=== PATIENT | male | born 1995 ===

== ENCOUNTER 2018-03-12 04:28 | Emergency (ER) | payer OTHER ==
[2018-03-12 06:07] VITALS: BP 111/73
--- NOTE | 2018-03-12 07:34 | Emergency Department Report ---
Abscess Boil HPI - HPI Chief Complaint: Skin/Abscess/Foreign Body Stated Complaint: ABSCESS [facility] Time Seen by Provider: 03/12/18 07:14 Duration: 3 Days Location: Other ([facility]) Severity: Mild History: Yes Pain, No Fever, No Purulent Drainage, No Numbness, No Foreign Body , No Previous History, No Insect Bite Home Medications: Previous Rx's Medication Instructions Recorded Last Taken Type cephALEXin [Keflex] 500 mg PO Q12HR #20 cap 03/12/18 Unknown Rx Allergies/Adverse Reactions: Allergies Allergy/AdvReac Type Severity Reaction Status Date / Time No Known Allergies Allergy Unverified 03/12/18 06:06 ED Review of Systems ROS: Stated complaint: ABSCESS [facility] Other details as noted in HPI Comment: All other systems reviewed and negative Constitutional: no symptoms reported. denies: fever Eyes: denies: eye pain ENT: denies: ear pain, throat pain Respiratory: no symptoms reported Cardiovascular: denies: chest pain Endocrine: denies: excessive sweating Gastrointestinal: denies: abdominal pain Genitourinary: denies: urgency Musculoskeletal: denies: back pain Skin: rash, lesions Neurological: denies: headache Psychiatric: denies: anxiety, depression Hematological/Lymphatic: denies: easy bleeding ED Past Medical Hx - Past Medical History Previous Medical History?: No - Surgical History Past Surgical History?: No - Social History Smoking Status: Current Every Day Smoker Substance Use Type: Alcohol, Marijuana - Medications Home Medications: Home Medications Medication Instructions Recorded Confirmed Last Taken Type cephALEXin [Keflex] 500 mg PO Q12HR #20 cap 03/12/18 Unknown Rx ED Abscess Boil Physical Exam - Exam General: Vital signs noted. No distress. Alert and acting appropriately. Exam: Yes Tenderness, No Fluctuance, No Surrounding Cellulites/Erythema, No Lymphangitis, No Crepitation, No Heart Murmur, No Normal Neurologic Exam, No Normal Circulation Exam: [facility] W FOLLICULITIS AND BLOCKED PORES. THERE IS NO LOCALIZED ABSCESS AND DOES NOT APPEAR TO BE HIDRADENITIS. CAUTIONED PT THAT THIS COULD TURN TO HIDRA. IF HE DOES NOT CARE FOR THE AREA WITH EXFOLIATION ETC. ED Course Vital Signs 03/12/18 05:12 Temperature 98.5 F Pulse Rate 57 L Respiratory 14 Rate Blood Pressure 111/73 O2 Sat by Pulse 100 Oximetry - Reevaluation(s) Reevaluation #1: 03/12/18 08:45 NO I/D REQUIRED DIFFUSE FOLLICULITIS OF [facility] SKIN CARE INSTRUCTIONS MEDICATED Critical care attestation.: If time is entered above; I have spent that time in minutes in the direct care of this critically ill patient, excluding procedure time. ED Medical Decision Making - Differential Diagnosis FOLLICULITIS V ABSCESS V HIDRADENITIS ED Disposition Clinical Impression: Folliculitis Disposition: DC- TO HOME OR SELFCARE Is pt being admited?: No Does the pt Need Aspirin: No Condition: Stable Instructions: Folliculitis (ED) Additional Instructions: CLIP UNDERARM HAIR EXFOLIATE WELL USE SPRAY DEODORANT KEEP AREA CLEAN AND DRY WEAR LOSE COTTON CLOTHING EPSOM SALTS IN THE BATH TUB FOR 20 M EACH DAY WILL HELP MED ORDERED TODAY MOTRIN OR TYLENOL FOR PAIN THIS CAN REOCCUR FOLLOW UP WITH PCP Prescriptions: cephALEXin [Keflex] 500 mg PO Q12HR #20 cap Referrals: PRIMARY CARE, [Primary Care Provider] - 3-5 Days Time of Disposition: 07:30
== END 2018-03-12 08:04 | disposition home or self-care (01) ==
LOC: ED 04:28
DX: L73.9 Follicular disorder, unspecified (principal); F17.200 Nicotine dependence, unspecified, uncomplicated; F12.10 Cannabis abuse, uncomplicated
CPT/HCPCS: 99282